=== PATIENT | female | born 1990 | race Caucasian/White ===

== ENCOUNTER 2017-01-05 11:03 | Emergency (ER) ==
[2017-01-05 11:11] VITALS: BP 115/72; TEMP 100.2; BMI 21.1
--- NOTE | 2017-01-05 11:37 | ED.PDOC ---
General ED Provider: Dr. TANVI CONTI JR Chief Complaint: Sore Throat Stated Complaint: SORETHROAT, RUNNY NOSE, CONGESTION, BODY ACHES WITH COUGH. [ End ]three days 100.2 97 20 97% 115/72 anem anx panic attacks. pain cough huarse st chills Time Seen by Physician: 11:37 Mode of Arrival: Walk-In Information Source: Patient, Family Exam Limitations: No limitations Primary Care Provider: [facility] Nursing and Triage Documentation Reviewed and Agree: No Review of Systems - Review Of Systems Constitutional: Reports: Chills, Fever, Malaise, Weakness Eyes: Reports: No symptoms Ears, Nose, Mouth, Throat: Reports: Ear pain, Throat pain, Throat swelling Respiratory: Reports: Cough Cardiac: Reports: No symptoms GI: Reports: No symptoms : Reports: No symptoms Musculoskeletal: Reports: Muscle pain Skin: Reports: No symptoms Neurological: Reports: No symptoms Endocrine: Reports: No symptoms Hematologic/Lymphatic: Reports: Swollen glands All Other Systems: Other Past Medical History - Past Medical History Previously Healthy: Yes Endocrine: Reports: None Cardiovascular: Reports: None Respiratory: Reports: None Hematological: Reports: Anemia Gastrointestinal: Reports: None Genitourinary: Reports: None Neuro/Psych: Reports: Anxiety, Other (panic attacks) Musculoskeletal: Reports: None Cancer: Reports: None Last Menstrual Period: 12/24/16 - Surgical History General Surgical History: Reports: None - Family History Family History: Reports: Other (children ill 2 weeks ago strep) - Social History Smoking Status: Current some day smoker Hx Substance Use: No Alcohol Screening: Occasionally - Immunizations Tetanus Shot up to Date: Yes Physical Exam - Physical Exam Appearance: Ill-appearing, Thin Ill-appearing: Moderate Pain Distress: Moderate Eyes: EUGENIO, EOMI, Conjunctiva clear ENT: Erythema (note ear congestions retraction consistent with allergies) Neck: Supple (LAD) Respiratory: Airway patent, Breath sounds clear, Breath sounds equal, Respirations nonlabored Cardiovascular: RRR, Pulses normal, No rub, No murmur GI/: Soft, Nontender, No masses, Bowel sounds normal, No Organomegaly Musculoskeletal: Normal strength, ROM intact, No edema, No calf tenderness Skin: Warm, Dry, Normal color Neurological: Sensation intact, Motor intact, Reflexes intact, Cranial nerves intact, Alert, Oriented Psychiatric: Affect appropriate, Mood appropriate Critical Care Note - Critical Care Note Total Time (mins): 0 Course - Course Vital Signs: Temp Pulse Resp BP Pulse Ox 01/05/17 11:06 100.2 F H 97 H 20 115/72 97 Departure - Departure Time of Disposition: 12:03 Disposition: HOME SELF-CARE Discharge Problem: Streptococcal sore throat Instructions: Pharyngitis (ED), Strep Throat (ED) Condition: Good Pt referred to PMD for follow-up: Yes Additional Instructions: Keflex until gone antibiotic Naprosyn for pain not relieved by Tylenol avoid sharing food or drink Prescriptions: Naproxen [Naprosyn] 500 mg PO Q12HR PRN #30 tablet PRN Reason: PAIN Cephalexin [Keflex] 500 mg PO QID #40 capsule Methylprednisolone [Medrol Dosepak] 4 mg PO DIRECTED #1 pkg Allergies/Adverse Reactions: Allergies No Known Allergies Allergy (Unverified 08/03/14 08:37) Home Medications: Ambulatory Orders Citalopram Hydrobromide [Celexa] 40 mg PO BEDTIME #30 08/03/14 Clonazepam [Klonopin] 1 mg PO QID #120 06/05/16 Cephalexin [Keflex] 500 mg PO QID #40 capsule 01/05/17 Methylprednisolone [Medrol Dosepak] 4 mg PO DIRECTED #1 pkg 01/05/17 Naproxen [Naprosyn] 500 mg PO Q12HR PRN #30 tablet 01/05/17
[2017-01-05] MEDS ORDERED: NAPROSYN PO STA (11:46)
[2017-01-05] MEDS ORDERED: KEFLEX PO STA (11:46)
[2017-01-05 12:01] LABS: BASOPHILS % (AUTO) 0.3 % (0.0-3.0); HEMATOCRIT 37.8 % (37.0-47.0); HEMOGLOBIN 12.9 g/dl (12.0-16.0); IMMATURE GRANULOCYTE % (AUTO) 0.4 % (0.0-5.0); LYMPHOCYTES # (AUTO) 1.3 K/uL (0.60-3.4); MEAN CORPUSCULAR HEMOGLOBIN 30.8 pg (27.0-31.0); MEAN CORPUSCULAR HGB CONC 34.1 (31.8-35.4); MEAN CORPUSCULAR VOLUME 90.2 fl (81.0-99.0); MONOCYTES # (AUTO) 0.9 K/uL (0.4-2.0); MONOCYTES % (AUTO) 7.8 (0-10); NEUTROPHILS # (AUTO) 9.5 K/ul (2.0-6.9); NEUTROPHILS % (AUTO) 80.5; PLATELET COUNT 171 10^3/uL (140-440); RED BLOOD COUNT 4.19 10^6/ul (4.20-5.40); WHITE BLOOD COUNT 11.77 K/ul (4.6-10.2)
[2017-01-05 12:04] LABS: FLU INTERNAL QC INTERNAL QC VALID; RAPID FLU A NEGATIVE (NEGATIVE); RAPID FLU B NEGATIVE (NEGATIVE)
== END 2017-01-05 13:01 | disposition home or self-care (01) ==
LOC: ED 11:03
DX: J02.0 Streptococcal pharyngitis (principal); F17.210 Nicotine dependence, cigarettes, uncomplicated
CPT/HCPCS: 36415; 85025; 85379; 87804; 87880; 99283

== ENCOUNTER 2017-05-04 09:02 | Emergency (ER) ==
[2017-05-04 09:07] VITALS: BP 126/61; TEMP 98.2; BMI 20.4
[2017-05-04] MEDS ORDERED: BOOSTRIX IM ONE (09:15)
[2017-05-04] MEDS ORDERED: ZOFRAN 4 MG/2 ML IM STA (09:19)
[2017-05-04] MEDS ORDERED: DEMEROL 25 MG/ML SYRINGE IM STA (09:19)
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
--- NOTE | 2017-05-04 09:43 | DI ---
EXAM: Radiographs, right foot HISTORY: Initial presentation for right foot trauma. COMPARISON: None available. TECHNIQUE: Three views. FINDINGS: Bone mineralization is normal. There is no fracture or dislocation. The joint spaces are maintained. No focal soft tissue abnormality is seen. IMPRESSION: No fracture or dislocation.
== END 2017-05-04 10:32 | disposition home or self-care (01) ==
LOC: ED 09:02
DX: S90.31XA Contusion of right foot, initial encounter (principal); S90.811A Abrasion, right foot, initial encounter; F17.210 Nicotine dependence, cigarettes, uncomplicated; V86.99XA Unspecified occupant of other special all-terrain or other off-road motor vehicle injured in nontraffic accident, initial encounter
CPT/HCPCS: 90471; 96372; 99283

== ENCOUNTER 2018-09-02 07:11 | Emergency (ER) | payer OTHER ==
[2018-09-02 07:11] VITALS: BMI 20.4
[2018-09-02 07:14] VITALS: BP 122/75; TEMP 96.7
--- NOTE | 2018-09-02 07:32 | ED.PDOC ---
General ED Provider: Dr. ROLANDA BETTS Chief Complaint: Tooth Problem Stated Complaint: dental pain Time Seen by Physician: 07:12 Mode of Arrival: Walk-In Information Source: Patient Primary Care Provider: ELISABETH LAUREN Nursing and Triage Documentation Reviewed and Agree: Yes Does patient meet sepsis criteria?: No System Inflammatory Response Syndrome: Not Applicable Sepsis Protocol: For patient's 13 years and over: Temp is 96.8 and below OR 101 and greater Pulse >90 BPM Resp >20/minute Acutely Altered Mental Status Are patient's symptoms suggestive of a new infection, such as: -Pneumonia -Skin, Soft Tissue -Endocarditis -UTI -Bone, Joint Infection -Implantable Device -Acute Abdominal Infection -Wound Infection -Meningitis -Blood Stream Catheter Infection -Unknown EENT Complaint Exam - Dental/Oral Complaint/Exam Mechanism of Injury: No known trauma Onset/Duration: chronic issue Symptoms Are: Still present Timing: Intermittent Initial Severity: Moderate Current Severity: Moderate Character: Reports: Aching, Throbbing Aggravating: Reports: Heat, Cold, Chewing Alleviating: Reports: None Associated Signs and Symptoms: Denies: Swelling, Discharge, Fever, Foul odor, Foul taste in mouth Related History: Reports: Similar episode Cardiac Risk Factors: Reports: None Dental/Oral Surgical History: Reports: None Facial Swelling Present: No Bleeding Present: No Oropharynx Findings: Absent: Clots, Active bleeding Septal Hematoma: No Foreign Body Present: No Dysphagia Present: No Drooling Present: No Asymmetrical Tonsillar Swelling Present: No Uvula Midline: Yes Verna-tonsillar Fluctuence: No Trismus Present: No Palatal Petechiae Present: No Scarlatinaform Rash Present: No Lesions: Absent: Lip, Gums, Tongue, Buccal Mucosa, Pharynx Teeth Picture: 1 - advanced decay Differential Diagnoses: Dental Caries, Fractured Tooth Review of Systems - Review Of Systems Constitutional: Reports: No symptoms Eyes: Reports: No symptoms Ears, Nose, Mouth, Throat: Reports: No symptoms Respiratory: Reports: No symptoms Cardiac: Reports: No symptoms GI: Reports: No symptoms : Reports: No symptoms Musculoskeletal: Reports: No symptoms Skin: Reports: No symptoms Neurological: Reports: No symptoms Endocrine: Reports: No symptoms Hematologic/Lymphatic: Reports: No symptoms All Other Systems: Reviewed and Negative Past Medical History - Past Medical History Previously Healthy: Yes Endocrine: Reports: None Cardiovascular: Reports: None Respiratory: Reports: None Hematological: Reports: Anemia Gastrointestinal: Reports: None Genitourinary: Reports: None Neuro/Psych: Reports: Anxiety, Other (panic attacks) Musculoskeletal: Reports: None Cancer: Reports: None Last Menstrual Period: ALONSO CONTROL (IRREGULAR PERIODS) - Surgical History General Surgical History: Reports: None - Family History Family History: Reports: Other (children ill 2 weeks ago strep) - Social History Smoking Status: Current some day smoker Hx Substance Use: No Alcohol Screening: Occasionally - Immunizations Tetanus Shot up to Date: Yes Physical Exam - Physical Exam Appearance: Well-appearing, No pain distress, Well-nourished Eyes: EUGENIO, EOMI, Conjunctiva clear ENT: Ears normal, Nose normal, Oropharynx normal Respiratory: Airway patent, Breath sounds clear, Breath sounds equal, Respirations nonlabored Cardiovascular: RRR, Pulses normal, No rub, No murmur GI/: Soft, Nontender, No masses, Bowel sounds normal, No Organomegaly Musculoskeletal: Normal strength, ROM intact, No edema, No calf tenderness Skin: Warm, Dry, Normal color Neurological: Sensation intact, Motor intact, Reflexes intact, Cranial nerves intact, Alert, Oriented Psychiatric: Affect appropriate, Mood appropriate Critical Care Note - Critical Care Note Total Time (mins): 0 Course - Course Vital Signs: Temp Pulse Resp BP Pulse Ox 09/02/18 07:11 96.7 F L 84 18 122/75 98 Departure - Departure Time of Disposition: 07:32 Disposition: HOME SELF-CARE Discharge Problem: Toothache Instructions: Toothache (ED) Condition: Good Pt referred to PMD for follow-up: Yes IPMP verified?: No Additional Instructions: Please call your Family Physician as soon as possible to schedule a follow-up appointment. Allergies/Adverse Reactions: Allergies No Known Allergies Allergy (Unverified 09/02/18 07:14) Home Medications: Ambulatory Orders 1 [No Reported Medications] 09/02/18 Disposition Discussed With: Patient
== END 2018-09-02 07:45 | disposition home or self-care (01) ==
LOC: ED 07:11
DX: K08.89 Other specified disorders of teeth and supporting structures (principal); K02.7 Dental root caries
CPT/HCPCS: 99282